=== PATIENT | male | born 1975 ===

== ENCOUNTER 2025-07-12 01:09 | Emergency (ER) | payer MEDICAID ==
[~2025-07-12] VITALS: Ht 175.3 cm; Wt 67.0 kg
[2025-07-12 01:12] VITALS: BP 150/104; PULSE 90; RESP 18; TEMP 97.2; O2SAT 99
--- NOTE | 2025-07-12 02:47 | RADIOLOGY REPORT ---
EXAM: DI KNEE 3 VWS CLINICAL INDICATION: KNEE PAIN TECHNIQUE: 3 views of the right and 3 views of the left knee were obtained. COMPARISON: None FINDINGS/IMPRESSION: There is no evidence of acute fracture or dislocation. The visualized joint space is well maintained. The alignment is anatomical. There is no radiopaque foreign body.
== END 2025-07-12 04:05 | disposition left against medical advice (07) ==
LOC: ER 01:11
DX: M25.562 Pain in left knee (principal); M25.561 Pain in right knee
CPT/HCPCS: 73562; 99281; 99282